=== PATIENT | female | born 1975 | race Hispanic/Latino ===

== ENCOUNTER → 2017-02-23 00:02 | Emergency (ER) | payer OTHER | END | disposition left against medical advice (07) | LOC: C.ER 00:02 | DX: M25.511 Pain in right shoulder (principal); Z02.9 Encounter for administrative examinations, unspecified ==

== ENCOUNTER 2017-03-15 12:12 | Emergency (ER) | payer OTHER ==
[2017-03-15 13:03] LABS: SQUAMOUS EPITHIAL 57 /hpf (0-5); URINE BACTERIA RARE (<OCC); URINE BILIRUBIN 1+ (NEGATIVE); URINE BLOOD NEGATIVE (NEGATIVE); URINE CALCIUM OXALATE CRYSTALS OCC /hpf (<OCC); URINE CLARITY Hazy (Clear); URINE GLUCOSE (UA) NORMAL (Normal); URINE LEUKOCYTE ESTERASE NEG Leu/uL (Negative); URINE NITRATE NEGATIVE (NEGATIVE); URINE PROTEIN 1+ mg/dL (NEGATIVE); URINE UROBILINOGEN NORMAL mg/dL (0.2-1.0)
[2017-03-15 13:06] LABS: HCG,QUALITATIVE URINE NEGATIVE (NEGATIVE)
[2017-03-15 13:08] LABS: URINE COLOR YELLOW (YELLOW)
[2017-03-15] MEDS ORDERED: Lactated Ringer's 1,000 ML IVB ONE (13:55)
[2017-03-15] MEDS ORDERED: Iohexol 240 (50 ml) PO STA (13:56)
[2017-03-15 14:14] LABS: BASO # 0.1 K/uL (0.0-0.2); BASO % 0.8 % (0.0-2.0); EOS # 0.3 K/uL (0.0-0.7); EOS % 3.2 % (0.0-4.0); HEMOGLOBIN 12.9 g/dL (11.0-16.0); LYMPH # 2.4 K/uL (1.0-4.3); LYMPH % 26.7 % (20.0-40.0); MEAN CORPUSCULAR HEMOGLOBIN 31.5 pg (27.0-31.0); MEAN CORPUSCULAR HGB CONC 33.1 g/dL (33.0-37.0); MEAN PLATELET VOLUME 10.8 fL (7.2-11.7); MONO # 0.5 K/uL (0.0-0.8); NEUT # 5.8 K/uL (1.8-7.0); NEUT % 64.3 % (50.0-75.0); NRBC % 0.1 % (0.0-2.0); RBC 4.09 Mil/uL (3.80-5.20); RED CELL DISTRIBUTION WIDTH 13.3 % (11.5-14.5)
[2017-03-15 14:20] LABS: ALBUMIN 3.9 g/dL (3.5-5.0)
[2017-03-15 14:22] LABS: GFR AFRICAN-AMERICAN > 60; GFR NON-AFRICAN AMERICAN > 60; PROTHROMBIN TIME 11.5 SECONDS (9.7-12.2)
[2017-03-15 14:23] LABS: ALB/GLOB RATIO 1.2 (1.0-2.1); ALT/SGPT 24 U/L (9-52); AST/SGOT 17 U/L (14-36); BLOOD UREA NITROGEN 12 mg/dL (7-17)
[2017-03-15 14:24] LABS: CALCIUM 8.4 mg/dl (8.6-10.4)
[2017-03-15] MEDS ORDERED: Iohexol 240 (50 ml) ONE (14:24)
[2017-03-15] MEDS ORDERED: Lactated Ringer's 1,000 ML ONE (14:25)
[2017-03-15] MEDS ORDERED: Iodixanol 320 MG/ML 100 ML BOTTLE IV ONE (15:48)
--- NOTE | 2017-03-15 16:47 | CT ---
PROCEDURE: CT Abdomen and Pelvis with contrast HISTORY: Chronic diarrhea, became bloody. COMPARISON: None. TECHNIQUE: Contrast dose: Omnipaque 350 - 100 cc Radiation dose: Total exam DLP = mGy-cm. This CT exam was performed using one or more of the following dose reduction techniques: Automated exposure control, adjustment of the mA and/or kV according to patient size, and/or use of iterative reconstruction technique. FINDINGS: LOWER THORAX: Unremarkable. LIVER: Unremarkable. No gross lesion or ductal dilatation. GALLBLADDER AND BILE DUCTS: Unremarkable. PANCREAS: Unremarkable. No gross lesion or ductal dilatation. SPLEEN: Unremarkable. ADRENALS: Unremarkable. No mass. KIDNEYS AND URETERS: Unremarkable. No hydronephrosis. No solid mass. VASCULATURE: Unremarkable. No aortic aneurysm. BOWEL: Prominent diverticular changes seen at the sigmoid colon which are mild at the distal descending segment. No definitive pericolic reaction appreciated, however, mural thickening of the sigmoid colon at its mid and distal segments may reflect limited acute or subacute disease superimposed over chronic diverticular disease. Limited thickening of the hepatic flexure is difficult to completely exclude. The terminal ileum appears normal however. Crohn's colitis is not favored. Further clinical correlation is advised, including potential lower endoscopy as other etiologies are not excluded including inflammatory or neoplastic causes. No abscess or free intraperitoneal gas is evident. APPENDIX: Normal appendix. PERITONEUM: Unremarkable. No free fluid. No free air. LYMPH NODES: Unremarkable. No enlarged lymph nodes. BLADDER: Unremarkable. REPRODUCTIVE: A small left adnexal cyst measures 1.4 centimeters with the right adnexal compartment containing a 1.5 centimeters cyst inferior to the bladder. Mild myomatous uterine changes are identified. BONES: Degenerative disease is advanced at L4-5 and L5-S1. OTHER FINDINGS: None. IMPRESSION: Limited diverticulitis is questioned at the mid to distal sigmoid colon without local pericardial reaction abscess or free air at this time. Limited thickening of the splenic flexure is also questioned and segmental colitis is not excluded. No sign of lymphadenopathy. Please see differential diagnosis above. Further clinical correlation is advised. Limited bilateral adnexal cystic changes and myomatous uterus identified.
--- NOTE | 2017-03-15 17:04 | C.PDOC ---
Time Seen by Provider: 03/15/17 13:38 Chief Complaint (Nursing): GI Problem History Per: Patient Onset/Duration Of Symptoms: Days (about 4 months) Current Symptoms Are (Timing): Still Present Severity: Moderate Location Of Pain/Discomfort: Diffuse Quality Of Discomfort: Cramping Associated Symptoms: Diarrhea Exacerbating Factors: Food Alleviating Factors: None Last Bowel Movement: Today Additional History Per: Prior Records Past Medical History Reviewed: Historical Data, Nursing Documentation, Vital Signs Vital Signs: Last Vital Signs Temp 97.6 F 03/15/17 12:35 Pulse 101 H 03/15/17 12:35 Resp 16 03/15/17 12:35 BP 119/82 03/15/17 12:35 Pulse Ox 99 03/15/17 12:35 - Medical History PMH: Back Problems, Chronic Kidney Disease Surgical History: No Surg Hx Family History: States: Unknown Family Hx - Social History Hx Tobacco Use: No Hx Alcohol Use: No Hx Substance Use: No - Immunization History Hx Tetanus Toxoid Vaccination: No Hx Influenza Vaccination: No Hx Pneumococcal Vaccination: No Review Of Systems Except As Marked, All Systems Reviewed And Found Negative. Constitutional: Negative for: Fever, Weakness Cardiovascular: Negative for: Chest Pain Respiratory: Negative for: Shortness of Breath Gastrointestinal: Positive for: Diarrhea (with blood streaks). Negative for: Vomiting Genitourinary: Negative for: Dysuria Musculoskeletal: Negative for: Neck Pain, Back Pain Skin: Negative for: Rash Neurological: Negative for: Weakness, Numbness, Seizures, Altered Mental Status Physical Exam - Physical Exam Appears: Non-toxic, No Acute Distress Skin: Normal Color, Warm, Dry, No Rash Head: Atraumatic, Normacephalic Eye(s): bilateral: PERRL, EOMI Neck: Normal ROM, Supple Cardiovascular: Rhythm Regular Respiratory: Normal Breath Sounds, No Accessory Muscle Use Gastrointestinal/Abdominal: Soft, No Tenderness Back: No CVA Tenderness Extremity: Normal ROM Neurological/Psych: Oriented x3, Normal Motor, Normal Sensation ED Course And Treatment - Laboratory Results Result Diagrams: 03/15/17 14:08 03/15/17 14:08 Lab Interpretation: No Acute Changes Urine POC: Negative O2 Sat by Pulse Oximetry: 99 Pulse Ox Interpretation: Normal - CT Scan/US CT abd/pelv. Other Rad Studies (CT/US): Read By Radiologist, Radiology Report Reviewed CT/US Interpretation: IMPRESSION: Limited diverticulitis is questioned at the mid to distal sigmoid colon without local pericardial reaction abscess or free air at this time. Limited thickening of the splenic flexure is also questioned and segmental colitis is not excluded. No sign of lymphadenopathy. Please see differential diagnosis above. Further clinical correlation is advised. Limited bilateral adnexal cystic changes and myomatous uterus identified. Progress - Interventions Interventions:: Observation, Intravenous fluid - Data Reviewed Data Reviewed: Lab, Diagnostic imaging, Old records - Patient Status Patient status: Partially improved - Continuity of Care Discussed patient case with:: Patient, ED Nurse - Patient Plan Patient Plan: Discharge, F/U with PCP Disposition Counseled Patient/Family Regarding: Studies Performed, Diagnosis, Need For Followup, Rx Given - Disposition Referrals: [facility] [Outside] Disposition: HOME/ ROUTINE Disposition Time: 17:04 Condition: STABLE Additional Instructions: Drink plenty of fluids. Follow up with a Special Investigator for further evaluation and treatment, including colonoscopy. Return to the ER if you develop fever, vomiting, worsening of symptoms or if you have any other concerns. Prescriptions: Ciprofloxacin [Cipro] 1 tab PO BID #20 tab metroNIDAZOLE [Flagyl] 500 mg PO TID #30 tab Instructions: Diverticulosis (ED), Chronic Diarrhea (ED) - Clinical Impression Clinical Impression: Chronic diarrhea
[2017-03-15 17:28] VITALS: BP 123/82; PULSE 68; RESP 20; TEMP 97.5; O2SAT 100
== END 2017-03-15 17:26 | disposition home or self-care (01) ==
LOC: C.ER 12:12
DX: K52.9 Noninfective gastroenteritis and colitis, unspecified (principal)
CPT/HCPCS: 74177; 80053; 81001; 84703; 85025; 85610; 85730; 96374; 99285; J1885; J7120; Q9966; Q9967